=== PATIENT | female | born 1955 | race African-American/Black ===

== ENCOUNTER 2017-07-07 11:26 | Emergency (ER) | payer SELFPAY ==
[~2017-07-07] VITALS: Ht 152.4 cm; Wt 55.0 kg
[2017-07-07 12:00] VITALS: BP 133/75
== END 2017-07-07 13:12 | disposition left against medical advice (07) ==
LOC: ER 11:34 → CANBEDREQ 16:25
DX: R41.82 Altered mental status, unspecified (principal); E11.9 Type 2 diabetes mellitus without complications; Z88.5 Allergy status to narcotic agent
CPT/HCPCS: 93005; 99283